=== PATIENT | female | born 1965 | race Caucasian/White ===

== ENCOUNTER 2017-03-17 11:53 | Emergency (ER) | payer OTHER ==
[2017-03-17 12:21] LABS: Bilirubin Negative (Negative); Blood, Urine Negative (Negative); Glucose, Urine (Dipstick) Negative (Negative); Ketone, Urine Negative (Negative); Nitrite Negative (Negative); Protein, Urine (Dipstick) Negative (Neg-Trace); Urobilinogen 0.2 mg/dL (0.2-1.0)
== END 2017-03-17 12:45 | disposition home or self-care (01) ==
LOC: SCSER 11:53
DX: R30.0 Dysuria (principal); M54.5 Low back pain; R10.30 Lower abdominal pain, unspecified; J44.9 Chronic obstructive pulmonary disease, unspecified; Z87.891 Personal history of nicotine dependence; Z79.899 Other long term (current) drug therapy
CPT/HCPCS: 81003; 87086; 99283

== ENCOUNTER 2018-03-05 05:54 | Day surgery (SDC) | payer OTHER ==
[2018-03-02 09:47] VITALS: BMI 29.1
--- NOTE | 2018-03-05 13:20 | OP ---
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 PROCEDURE PERFORMED: Esophagogastroduodenoscopy with esophageal dilation. INDICATIONS: 1. Esophageal dysphagia. 2. Gastroesophageal reflux disease. MEDICATIONS: See Anesthesia records. FINDINGS: After discussion of the risks, benefits, and alternatives of the procedure, informed consent was obtained and witnessed. Pre-endoscopic cardiopulmonary examination was satisfactory. Time-out was performed before sedation was achieved. Sedation was achieved with Anesthesia assistance in the endoscopy unit. A Pentax adult upper endoscope was placed into the oropharynx and passed through the cricopharyngeus under direct visualization. The proximal and mid-esophageal mucosa appeared normal. The GE junction was located at 35 cm from the incisors. At the GE junction, there was LA grade A esophagitis. There was also a shallow esophageal ring at this location. The endoscope was able to pass easily through the ring. The endoscope was passed into the stomach. There was a small hiatal hernia. Forward and retroflex views of the entire gastric mucosa were otherwise unremarkable. The endoscope was advanced through the pylorus and into the first and second portions of the duodenum which appeared unremarkable. At this point, a Savary guidewire was passed through the accessory port of the endoscope and the scope was removed leaving the guidewire in place. I performed a single esophageal dilation to 18 mm with a Savary dilator over the guidewire. The guidewire and dilator were removed and the endoscope was passed back into the esophagus for re-examination and this showed good mucosal disruption at the level of the esophageal ring. The endoscope was completely withdrawn and the patient allowed to recover. The patient tolerated the procedure well. There were no immediate postprocedure complications. IMPRESSION: 1. Shallow esophageal ring at the gastroesophageal junction at 35 cm from the incisors, successfully dilated to 18 mm over guidewire, with good mucosal disruptions at the esophageal ring. 2. LA grade A distal esophagitis. 3. Small hiatal hernia. 4. Otherwise normal esophagogastroduodenoscopy. RECOMMENDATIONS: 1. Daily oral proton-pump inhibitor. 2. Advance diet as tolerated. 3. Followup in clinic in about 1 month. Job ID: [id number]
[2018-03-05] MEDS ORDERED: PROPOFOL 200 MG/20 ML VIAL ONE (14:56)
[2018-03-05] MEDS ORDERED: Lidocaine 1% PF 5 ML VIAL ONE (14:56)
== END 2018-03-05 09:00 | disposition home or self-care (01) ==
LOC: SDC 05:54
PROVIDERS: ATTEND Internal Medicine
PROC: 0D758ZZ Dilation of Esophagus, Via Natural or Artificial Opening Endoscopic (ICD-10-PCS; principal; 2018-03-05)
DX: K22.8 Other specified diseases of esophagus (principal); K21.0 Gastro-esophageal reflux disease with esophagitis; Z88.6 Allergy status to analgesic agent; Z88.8 Allergy status to other drugs, medicaments and biological substances; Z87.891 Personal history of nicotine dependence

== ENCOUNTER 2018-09-28 15:19 | Outpatient (CLI) | payer OTHER ==
--- NOTE | 2018-09-28 17:23 | MMO ---
Bilateral MAMMO Bilat Screen [facility]. CLINICAL HISTORY: Patient is 53 years old and is seen for screening. The patient has no family history of breast cancer. The patient has no personal history of cancer. VIEWS: The views performed were: bilateral craniocaudal with tomosynthesis and bilateral mediolateral oblique with tomosynthesis. FILMS COMPARED: The present examination has been compared to a prior imaging study performed at [facility] on 09/05/2012. MAMMOGRAM FINDINGS: There are scattered fibroglandular densities. There are no suspicious masses, suspicious calcifications, or new areas of architectural distortion. IMPRESSION: THERE IS NO MAMMOGRAPHIC EVIDENCE OF MALIGNANCY. A ROUTINE FOLLOW-UP MAMMOGRAM IN 1 YEAR IS RECOMMENDED. THE RESULTS OF THIS EXAM WERE SENT TO THE PATIENT. ACR BI-RADS Category 1 - Negative MAMMOGRAPHY NOTE: 1. A negative mammogram report should not delay a biopsy if a dominant of clinically suspicious mass is present. 2. Approximately 10% to 15% of breast cancers are not detected by mammography. 3. Adenosis and dense breasts may obscure an underlying neoplasm.
== END 2018-09-28 15:20 | disposition home or self-care (01) ==
LOC: BICMAMMO 15:19
PROVIDERS: ATTEND Family Medicine
DX: Z12.31 Encounter for screening mammogram for malignant neoplasm of breast (principal)
CPT/HCPCS: 77063; 77067

== ENCOUNTER 2019-10-08 16:14 | Emergency (ER) | payer OTHER ==
[2019-10-09 12:51] LABS: SARS-CoV-2 MS2 Positive; SARS-CoV-2 N Gene Negative; SARS-CoV-2 S Gene Negative; SARS-CoV-2 orf1ab Negative
== END 2019-10-08 17:21 | disposition home or self-care (01) ==
LOC: ER/OP 16:14
DX: Z53.21 Procedure and treatment not carried out due to patient leaving prior to being seen by health care provider (principal)
CPT/HCPCS: 87635; U0003

== ENCOUNTER 2019-12-16 13:17 | Outpatient (CLI) | payer OTHER ==
--- NOTE | 2019-12-16 15:08 | MMO ---
Bilateral MAMMO Bilat Screen [facility]. CLINICAL HISTORY: Patient is 54 years old and is seen for screening. The patient has no family history of breast cancer. The patient has no personal history of cancer. VIEWS: The views performed were: bilateral craniocaudal with tomosynthesis and bilateral mediolateral oblique with tomosynthesis. FILMS COMPARED: The present examination has been compared to prior imaging studies performed at [facility] on 09/05/2012 and 09/28/2018. This study has been interpreted with the assistance of computer-aided detection. MAMMOGRAM FINDINGS: There are scattered fibroglandular densities. There are stable benign appearing calcifications seen in both breasts. There are no suspicious masses, suspicious calcifications, or new areas of architectural distortion. IMPRESSION: THERE IS NO MAMMOGRAPHIC EVIDENCE OF MALIGNANCY. A ROUTINE FOLLOW-UP MAMMOGRAM IN 1 YEAR IS RECOMMENDED. THE RESULTS OF THIS EXAM WERE SENT TO THE PATIENT. ACR BI-RADS Category 2 - Benign finding MAMMOGRAPHY NOTE: 1. A negative mammogram report should not delay a biopsy if a dominant of clinically suspicious mass is present. 2. Approximately 10% to 15% of breast cancers are not detected by mammography. 3. Adenosis and dense breasts may obscure an underlying neoplasm. Reported by: MARY FISCHER MD Electonically Signed: [id number]
== END 2019-12-16 13:18 | disposition home or self-care (01) ==
LOC: BICMAMMO 13:17
PROVIDERS: ATTEND Family Medicine
DX: Z12.31 Encounter for screening mammogram for malignant neoplasm of breast (principal)
CPT/HCPCS: 77063; 77067

== ENCOUNTER 2019-12-22 11:13 | Emergency (ER) | payer OTHER ==
[~2019-12-22 11:13] MED LIST: Iopamidol 370 76% 50 ML VIAL FS ONE; Iopamidol-370 76% 500 ML 1 ML ONE
[2019-12-22] MEDS ORDERED: Lidocaine Viscous Sol 2% 15 ml UD Cup ONE (13:00)
[2019-12-22] MEDS ORDERED: Morphine 2 MG/ML SYRINGE ONE (13:11)
[2019-12-22] MEDS ORDERED: Hydrocortisone Acetate 25 MG Suppository PR SCH (13:15)
[2019-12-22 13:17] LABS: #Basophils 0.1 thou/uL (0.0-0.2); #Eosinphils 0.2 thou/uL (0.0-0.7); #Monocytes 0.6 thou/uL (0.11-0.59); #Neutrophils 7.7 thou/uL (1.40-6.50); %Basophils 0.5 % (0.0-1.0); %Eosinophils 1.8 % (0.0-10.0); %Monocytes 5.3 % (0.0-10.0); %Neutrophils 73.5 % (42.0-75.0); Hemoglobin 16.6 g/dL (12.0-16.0); Mean Corpuscular HGB CONC 32.5 g/dL (32.0-36.0); Mean Corpuscular Hemoglobin 31.4 pg (27.0-31.0); Mean Corpuscular Volume 96.7 fL (78.0-98.0); Mean Platelet Volume 9.4 fL (7.4-10.4); Platelet Count 251 thou/uL (130-400); RBC Distribution Width 11.9 % (11.5-14.5); White Blood Cell (WBC) Count 10.4 thou/uL (4.8-10.8)
[2019-12-22 13:30] LABS: ALT (SGPT) 30 U/L (8-55); AST (SGOT) 26 U/L (5-34); Albumin 4.3 g/dL (3.5-5.0); Alkaline Phosphatase 95 U/L (40-110); Anion Gap 13 mmol/L (10-20); BUN (Urea Nitrogen) 10 mg/dL (9.8-20.1); Bilirubin, Total 0.5 mg/dL (0.2-1.2); Calc. Creatinine Clearance 0 mL/min (70-130); Calcium 9.2 mg/dL (7.8-10.44); Carbon Dioxide 27 mmol/L (22-29); Chloride 103 mmol/L (98-107); Estimated GFR-MDRD 66; Globulin 3.4 g/dL (2.4-3.5); Glucose 104 mg/dL (70-105); Potassium 4.3 mmol/L (3.5-5.1); Protein, Total 7.7 g/dL (6.0-8.3); Sodium 139 mmol/L (136-145)
[2019-12-22] MEDS ORDERED: Morphine 4 MG/ML VIAL ONE (16:07)
--- NOTE | 2019-12-22 16:33 | CT ---
CT Abdomen Pelvis W Con History: Hemorrhoids with rectal pain Comparison: None. Findings: Lung bases are relatively clear. No pericardial effusion. Diffuse hepatic steatosis. Prior cholecystectomy. [place] effect common bile duct. The spleen, pancreas, adrenal glands are normal. Mild fullness of the right renal pelvis. Dilated christal archie veins. Moderate volume stool within the rectum. No dilated loops of large or small bowel. Ingested contrast does reach the transverse colon. No free intraperitoneal gas or fluid. The aortic contour is nonaneurysmal. No retroperitoneal periaor tic adenopathy. Small sliding hiatal hernia. No acute osseous abnormality. Impression: 1. Prior cholecystectomy with diffuse hepatic steatosis. 2. No acute inflammatory process within the abdomen or pelvis. 3. Small sliding hiatal hernia. 4. No evidence for bowel obstruction.
== END 2019-12-22 17:57 | disposition home or self-care (01) ==
LOC: ERS 11:13
DX: K64.4 Residual hemorrhoidal skin tags (principal); J44.9 Chronic obstructive pulmonary disease, unspecified; Z87.891 Personal history of nicotine dependence
CPT/HCPCS: 74177; 80053; 85025; 96374; 96376; J2270

== ENCOUNTER 2020-07-09 09:05 | Outpatient (CLI) | payer OTHER | END 2020-07-09 09:06 | disposition home or self-care (01) | LOC: TBSIIMAG 09:05 | PROVIDERS: ATTEND Family Medicine | DX: M47.26 Other spondylosis with radiculopathy, lumbar region (principal); M51.16 Intervertebral disc disorders with radiculopathy, lumbar region; M51.27 Other intervertebral disc displacement, lumbosacral region; M48.061 Spinal stenosis, lumbar region without neurogenic claudication; M48.07 Spinal stenosis, lumbosacral region | CPT/HCPCS: 72148 ==

== ENCOUNTER 2020-08-13 10:02 | Outpatient (CLI) | payer OTHER | END 2020-08-13 10:03 | disposition home or self-care (01) | LOC: BICRAD 10:02 | PROVIDERS: ATTEND Neurological Surgery | DX: M47.26 Other spondylosis with radiculopathy, lumbar region (principal) | CPT/HCPCS: 72120 ==

== ENCOUNTER 2020-12-30 13:23 | Outpatient (CLI) | payer OTHER | END 2020-12-30 13:24 | disposition home or self-care (01) | LOC: BICMAMMO 13:23 | PROVIDERS: ATTEND Family Medicine | DX: Z12.31 Encounter for screening mammogram for malignant neoplasm of breast (principal) | CPT/HCPCS: 77063; 77067 ==

== ENCOUNTER 2021-04-26 08:11 | Outpatient (CLI) | payer BC | END 2021-04-26 08:12 | disposition home or self-care (01) | LOC: BICRAD 08:11 | PROVIDERS: ATTEND Neurological Surgery | DX: M54.16 Radiculopathy, lumbar region (principal); M71.38 Other bursal cyst, other site | CPT/HCPCS: 72110 ==

== ENCOUNTER 2021-06-07 12:08 | Outpatient (CLI) | payer BC ==
[2021-06-07 13:13] LABS: Hemoglobin 14.6 g/dL (12.0-15.5); Mean Corpuscular HGB CONC 32.5 g/dL (32.0-36.0); Mean Corpuscular Hemoglobin 31.6 pg (27.0-33.0); Mean Corpuscular Volume 97.2 fl (81.6-98.3); Mean Platelet Volume 11.4 fl (7.4-10.4); Platelet Count 242 10x3/uL (150-450); RBC Distribution Width 12.4 % (11.5-14.5); Red Blood Cell (RBC) Count 4.62 10x6/uL (3.90-5.03); White Blood Cell (WBC) Count 9.5 10x3/uL (3.5-10.5)
[2021-06-07 13:28] LABS: PTT 27.2 sec (22.0-33.0); Prothrombin Time 10.6 sec (9.5-12.1)
[2021-06-08 03:27] LABS: SARS-CoV-2 PCR by NAA Not Detected (NotDetected)
== END 2021-06-07 12:09 | disposition home or self-care (01) ==
LOC: LABBT 12:08
PROVIDERS: ATTEND Neurological Surgery
DX: Z01.812 Encounter for preprocedural laboratory examination (principal); M48.061 Spinal stenosis, lumbar region without neurogenic claudication; Z20.822 Contact with and (suspected) exposure to COVID-19
CPT/HCPCS: 85027; 85610; 85730; U0003; U0005

== ENCOUNTER 2021-06-10 09:56 | Day surgery (SDC) | payer BC ==
[2021-06-04 10:19] VITALS: BMI 31.4
[2021-06-10] MEDS ORDERED: Bupivacaine PF 0.5% 30 ML VIAL ONE (12:03)
[2021-06-10] MEDS ORDERED: EPINEPHrine 1 MG/ML AMP ONE (12:03)
[2021-06-10] MEDS ORDERED: Neomycin-Polymyxin 1 ML AMP ONE (12:03)
[2021-06-10] MEDS ORDERED: Thrombin 5000 UNITS/5 ML VIAL ONE (12:03)
[2021-06-10] MEDS ORDERED: ceFAZolin 2 GM/Dextrose 50 ML IVPB ONE (12:09)
[2021-06-10] MEDS ORDERED: Midazolam HCl 2 mg/2 ml Vial ONE (12:18)
[2021-06-10] MEDS ORDERED: Fentanyl 100 MCG/2 ML VIAL ONE (12:20)
[2021-06-10] MEDS ORDERED: HYDROmorphone 2 MG/ML VIAL ONE (12:20)
[2021-06-10] MEDS ORDERED: HYDROmorphone 0.5 MG/0.5 ML SYRINGE ONE (12:21)
[2021-06-10] MEDS ORDERED: ePHEDrine 50 MG/ML VIAL ONE (12:28)
[2021-06-10] MEDS ORDERED: Lidocaine 1% PF 5 ML VIAL ONE (12:28)
[2021-06-10] MEDS ORDERED: Dexamethasone 20 MG/5 ML VIAL ONE (12:28)
[2021-06-10] MEDS ORDERED: PHENYLEPHRINE-NS 100 MCG/ML 10 ML SYRINGE ONE (12:28)
[2021-06-10] MEDS ORDERED: Ondansetron PF 4 MG/2 ML Vial ONE (12:28)
[2021-06-10] MEDS ORDERED: PROPOFOL 200 MG/20 ML VIAL ONE (12:28)
[2021-06-10] MEDS ORDERED: Rocuronium Bromide 10 MG/ML (10ML VIAL) ONE (12:28)
[2021-06-10] MEDS ORDERED: Fentanyl 250 MCG/5 ML VIAL ONE (14:44)
== END 2021-06-10 17:12 | disposition home or self-care (01) ==
LOC: SDC 09:56
PROVIDERS: ATTEND Neurological Surgery
PROC: 01NB0ZZ Release Lumbar Nerve, Open Approach (ICD-10-PCS; principal; 2021-06-10)
DX: M48.061 Spinal stenosis, lumbar region without neurogenic claudication (principal); M51.16 Intervertebral disc disorders with radiculopathy, lumbar region; M51.17 Intervertebral disc disorders with radiculopathy, lumbosacral region; F17.210 Nicotine dependence, cigarettes, uncomplicated; J44.9 Chronic obstructive pulmonary disease, unspecified; M19.90 Unspecified osteoarthritis, unspecified site; Z88.6 Allergy status to analgesic agent
CPT/HCPCS: 76000; J0171; J0690; J1100; J1170; J2250; J2405; J2704; J3010; J3370; J3490; S0020

== ENCOUNTER 2022-02-15 12:52 | Outpatient (CLI) | payer BC | END 2022-02-15 12:53 | disposition home or self-care (01) | LOC: MRI 12:52 | PROVIDERS: ATTEND Nurse Practitioner Family | DX: M48.062 Spinal stenosis, lumbar region with neurogenic claudication (principal); M47.816 Spondylosis without myelopathy or radiculopathy, lumbar region; M47.817 Spondylosis without myelopathy or radiculopathy, lumbosacral region; M47.815 Spondylosis without myelopathy or radiculopathy, thoracolumbar region | CPT/HCPCS: 72148 ==